=== PATIENT | male | born 1970 | race Caucasian/White ===

== ENCOUNTER 2019-10-03 17:52 | Inpatient (IN) | payer BC, OTHER ==
[~2019-10-03] VITALS: Ht 188 cm; Wt 88.3 kg
[2019-10-03 17:55] VITALS: BP 142/96
[2019-10-03] MEDS ORDERED: METFORMIN HCL500 M3 PO (18:00)
[2019-10-03] MEDS ORDERED: ELIQUIS2.5 MG PO (18:00)
[2019-10-03] MEDS ORDERED: B/P MED (18:01)
[2019-10-03 18:06] LABS: HEMATOCRIT 51.1 % (42.0-52.0); HEMOGLOBIN 17.1 gm/dL (14.0-18.0); MCH 28.3 pg (26.0-34.0); MCHC 33.5 g/dL (28.0-37.0); MCV 84.4 fL (80.0-100.0); MPV 10.6 fl. (7.2-11.1); NUCLEATED RBCS 0 /100WBC; PLATELET COUNT* 380 thou/uL (150-400); RBC 6.06 mil/uL (4.50-6.00); RDW-CV 15.4 % (10.5-14.5); WBC 35.1 thou/uL (4.0-11.0)
[2019-10-03 18:23] LABS: APTT 31.9 Seconds (25.0-31.3); INR 1.3; PROTIME 13.5 Seconds (9.20-11.50)
[2019-10-03 18:24] LABS: CALCIUM 9.2 mg/dL (8.5-10.1); CREATININE 1.8 mg/dL (0.6-1.3); POTASSIUM 3.7 mmol/L (3.5-5.1)
[2019-10-03 18:25] LABS: INFLUENZA A ANTIGEN Negative (Negative); INFLUENZA B ANTIGEN Negative (Negative)
[2019-10-03 18:35] LABS: ALBUMIN 3.2 g/dL (3.4-5.0); MAGNESIUM 1.6 mg/dL (1.8-2.4); TOTAL BILIRUBIN 4.3 mg/dL (<0.1-1.0); TOTAL PROTEIN 7.5 g/dL (6.4-8.2)
[2019-10-03 18:40] LABS: BE 1.6 mmol/L (-2 to +3); PCO2 32.4 mmHg (35.0-45.0); pH 7.488 (7.340-7.450)
[2019-10-03 18:43] LABS: PO2 58.7 mmHg (75.0-100.0)
[2019-10-03 18:47] LABS: ABSOLUTE LYMPHOCYTES 3.9 thou/uL (0.8-5.3); ABSOLUTE MONOCYTES 1.1 thou/uL (0.0-1.2); ABSOLUTE NEUTROPHILS 30.2 thou/uL (1.6-8.1); ATYPICAL LYMPHS 8 %; PLATELET ESTIMATE ADEQUATE
--- NOTE | 2019-10-03 18:51 | NUR ---
CALLED RT FOR HIGH FLOW NASAL CANULA. PT ON 6LNC SPO2 91% PT ESCORT NOTIFIED. RT IN WITH PT NOW TO CHANGE OXYGEN TUBING TO HIGH FLOW AND HUMIDIFIED OXYGEN.
[2019-10-03 22:40] VITALS: BP 116/57
[2019-10-03 23:15] VITALS: BP 121/71
--- NOTE | 2019-10-04 04:19 | NUR ---
RECEIVED REPORT AND ASSUMED CARE AT 2300. PT TRANSPORTED FROM ED TO ROOM 206. VSS. CARDIAC MONITORING IN PLACE. PT DENIES COMPLAINTS OF PAIN. ASSESSMENT COMPLETED CHARTED, ADMISSION COMPLETED BY NURSING. PT UP AD VLADIMIR IN ROOM, ON 2L NC. BED LOCKED IN LOWEST POSITION, CALL LIGHT WITHIN REACH. DISCUSSED PLAN OF CARE WTIH PT, VERBALIZED UNDERSTANDING. MEDICATIONS ADMIN PER ORDERS.
[2019-10-04 04:40] VITALS: BP 104/68
[2019-10-04 08:37] VITALS: BP 132/79
--- NOTE | 2019-10-04 09:26 | NUR ---
ASSUMED CARE OF PT THIS AM AROUND 0715- SOFT MUD MOLDER IN PLACE ORDERED, TRACING SR/BBB/1ST DEGREE- UPON ASSESSMENT PT NOTED TO BE RESTING IN BED- PT A&O X4- CONTINENT OF B/B- UP AD-VLADIMIR IN ROOM, STEADY GAIT NOTED- DIMINISHED LUNG SOUNDS NOTED, DYSPNEA NOTED ON EXERTION- VSS, O2 SAT 94% ON 2L VIA NC- ABD SOFT/OBESE/NON-TENDER, BS X4 QUADS- LAST BM REPORTED 10/03/19- IV NOTED TO RIGHT HAND INTACT, IVF INFUSSING WELL IV ABT, IV NOTED TO LEFT HAND INTACT AND SL; IV NOTED TO LEFT AC INTACT, IV ABT INFUSSING PRESCIBED- GOOD PO INTAKE NOTED THIS AM WITH BREAKFAST, BS MONITORED ORDERED WITH SSI PRESCRIBED-PT DENIES ANY C/O PAIN/DISCOMFORT AT THIS TIME- CALL LIGHT AND PESONAL BELONGINGS WITH IN REACH- PT MAKES NEEDS KNOWN- ALL NEEDS MET AT THIS TIME-WCTM
--- NOTE | 2019-10-04 11:06 | NUR ---
Pt is A&O. Resides at home with . Normally active and independent. No DME. No hx of HH or SNF. Goal is home at ut. Following.
[2019-10-04 11:48] VITALS: BP 128/77
--- NOTE | 2019-10-04 12:50 | EKG ---
[place] [address] ELECTROCARDIOGRAM REPORT Name: TAINA OCONNELL Room: [address] ADM IN [facility].#: [id number] Admission: 10/03/19 Attend Phys: Gurdeep Nye, Discharge: Date of : 70 Report #: [id number] THIS REPORT FOR: //name// [facility] ED Test Date: 2019-10-03 Test Time: 18:29:18 Pat Name: TAINA OCONNELL Department: Room: [facility] Gender: M Regional Commercial Sales Manager: [place] : 1970 Requested By: Godfrey Nava Order Number: [id number] MD: Lexx Mathews Measurements Intervals [place] Rate: 91 P: -8 MT: 171 QRS: 89 QRSD: 159 T: -39 QT: 387 QTc: 477 Interpretive Statements Sinus rhythm Right bundle branch block No previous ECG available for comparison Electronically Signed On 10-04-2019 12:49:24 CELLOPHANE BAG MACHINE OPERATOR by Lexx Mathews [email or web address] <ELECTRONICALLY SIGNED> By: Lexx Mathews MD, [facility] 10/04/19 1249 28 28 Lexx Mathews MD, FACC /EPI
[2019-10-04 12:58] LABS: URINE BLOOD NEGATIVE (Negative); URINE CLARITY CLEAR; URINE COLOR YELLOW; URINE GLUCOSE-RANDOM 1+ (Negative); URINE KETONES TRACE (Negative); URINE LEUKOCYTES-REFLEX NEGATIVE (Negative); URINE NITRITE-REFLEX NEGATIVE (Negative); URINE PROTEIN 2+ (Negative); URINE SPECIFIC GRAVITY 1.025 (1.005-1.030); URINE UROBILINOGEN 0.2 E.U./dl (0.2-1.0)
[2019-10-04 12:59] LABS: ICTOTEST (BILI CONFIRMATORY) Negative (Negative); URINE BILIRUBIN 1+ (Negative)
[2019-10-04 13:05] LABS: CASTS None Seen /LPF (None Seen); CRYSTALS None Seen /LPF (None Seen); MUCUS 0-3 Light strn/LPF (None Seen); SQUAMOUS 0-3 Few /LPF (0-3); URINE RBC 0-2 Rare /HPF (0-2); URINE WBC-REFLEX 0-5 Rare /HPF (0-5)
[2019-10-04 15:54] LABS: HEMATOCRIT 45.5 % (42.0-52.0); HEMOGLOBIN 15.3 gm/dL (14.0-18.0); MCH 28.3 pg (26.0-34.0); MCHC 33.6 g/dL (28.0-37.0); MCV 84.4 fL (80.0-100.0); NUCLEATED RBCS 0 /100WBC; PLATELET COUNT* 356 thou/uL (150-400); RBC 5.39 mil/uL (4.50-6.00); RDW-CV 15.3 % (10.5-14.5); WBC 38.8 thou/uL (4.0-11.0)
[2019-10-04 16:07] LABS: ALBUMIN 2.7 g/dL (3.4-5.0); CALCIUM 8.8 mg/dL (8.5-10.1); CREATININE 1.7 mg/dL (0.6-1.3); POTASSIUM 3.2 mmol/L (3.5-5.1); TOTAL BILIRUBIN 1.3 mg/dL (<0.1-1.0); TOTAL PROTEIN 7.5 g/dL (6.4-8.2)
[2019-10-04 17:10] LABS: ABSOLUTE LYMPHOCYTES 0.4 thou/uL (0.8-5.3); ABSOLUTE MONOCYTES 1.9 thou/uL (0.0-1.2); ABSOLUTE NEUTROPHILS 36.5 thou/uL (1.6-8.1)
[2019-10-04 17:11] LABS: LARGE PLATELETS FEW; PLATELET ESTIMATE ADEQUATE
[2019-10-04 17:25] VITALS: BP 149/89
[2019-10-04 20:08] VITALS: BP 139/79
[2019-10-04 23:59] VITALS: BP 149/92
[2019-10-05 04:14] VITALS: BP 162/91
--- NOTE | 2019-10-05 05:08 | NUR ---
PT IS ABLE TO COMMUNICATE HIS NEEDS TO STAFF EFFECTIVELY. HE HAS DENIED THE NEED FOR PAIN MEDICATION UP TO THIS TIME. PT HAS BEEN WEARING HIS HOME CPAP WHILE SLEEPING TONIGHT, UP TO THIS TIME. POSSIBLE DISCHARGE IN A FEW DAYS.
[2019-10-05 06:36] LABS: ABSOLUTE BASOPHILS 0.1 thou/uL (0.0-0.2); ABSOLUTE LYMPHOCYTES 0.6 thou/uL (0.8-5.3); ABSOLUTE MONOCYTES 2.9 thou/uL (0.0-1.2); ABSOLUTE NEUTROPHILS 29.3 thou/uL (1.6-8.1); BASOPHILS 0.2 %; HEMATOCRIT 41.4 % (42.0-52.0); HEMOGLOBIN 13.6 gm/dL (14.0-18.0); LYMPHOCYTES 1.9 %; MCH 27.9 pg (26.0-34.0); MCHC 32.9 g/dL (28.0-37.0); MCV 84.7 fL (80.0-100.0); MPV 10.3 fl. (7.2-11.1); NUCLEATED RBCS 0 /100WBC; PLATELET COUNT* 323 thou/uL (150-400); POLYS 88.9 %; RBC 4.88 mil/uL (4.50-6.00); RDW-CV 15.5 % (10.5-14.5); WBC 32.9 thou/uL (4.0-11.0)
[2019-10-05 06:48] LABS: CALCIUM 8.3 mg/dL (8.5-10.1); CREATININE 1.3 mg/dL (0.6-1.3); POTASSIUM 3.3 mmol/L (3.5-5.1)
[2019-10-05 07:46] VITALS: BP 138/94
--- NOTE | 2019-10-05 08:49 | NUR ---
ASSUMED CARE OF PT THIS AM AROUND 714- COTTON PICKER OPERATOR IN PLACE ORDERED, TRACING SR- UPON ASSESSMENT PT NOTED TO BE RESTING IN BED, WATCHING TV- PT A&O X4- CONTINENT OF BOWEL AND BLADDER- UP AD-VLADIMIR IN ROOM, STEADY GAIT NOTED- LCTA/DIMINISHED IN BASES- DYSPNEA NOTED- VSS, O2 SAT 95% ON 2L VIA NC-WET PRODUCTIVE COUGH NOTED- ABD SOFT/OBESE/NON-TENDER, BS X4 QUADS-LAST BM REPORTED OVERNIGHT- IV NOTED TO LEFT HAND AND LEFT AC INTACT, IV ABT GIVEN PRESCIBED- TRACE EDEMA NOTED TO BLE- K+ CURRENTLY BEING REPLACED PER PROTOCOL THIS SHIFT- ISOLATION IN PLACE AND MAINTAINED INDICATED R/T MRSA PER NASAL- GOOD PO INTAKE NOTED, BS MONITORED ORDERED- PT DENIES ANY C/O PAIN/DISCOMFORT AT THIS TIME- CALL LIGHT AND PERSONAL BELONGINGS WITH IN REACH- PT MAKES NEEDS KNOWN- ALL NEEDS MET AT THIS TIME-WCTM
--- NOTE | 2019-10-05 12:22 | CON ---
[address] [address] CONSULTATION Name: TAINA OCONNELL Room: [address] IN .R.#: [id number] Admission: 10/03/19 Attend Phys: Gurdeep Nye, Discharge: Date of : 70 Report #: [id number] THIS REPORT FOR: //name// CC: Lexx Nye DATE OF SERVICE: 10/04/2019 ATTENDING PHYSICIAN: Gurdeep Nye MD REASON FOR EVALUATION: Sepsis, pneumonia. HISTORY OF PRESENT ILLNESS: Chart reviewed and the patient examined. This is a 49-year-old gentleman with significant history including hemolytic anemia history, as per the evaluation and treatment had a splenectomy several years ago, he is diabetic as well, who was admitted through the Emergency Room with complaints of progressive cough, did have some subsequent dyspnea, noted onset on 09/29 and found to have hypoxemia with saturations in the 80s. He did have some associated fevers. He did feel chills, although they were not shaking and was complicated by some diaphoresis. On evaluation, he was found to have multifocal changes on x-ray suggestive of pneumonia. He did have a markedly elevated white count in the setting of a splenectomy 35,000. Interestingly, he had some atypical lymphocytes as well. Influenza antigen was negative. Lactic acid was elevated at 2.6. Troponin level was elevated to 0.08. Blood cultures are sterile thus far. CT of the chest PE protocol showed multifocal pneumonia with prominent consolidation involving the inferior lateral aspect of the left upper lobe, lingula and left lower lobe in addition to patchy perihilar infiltrate in the right side with some adenopathy. He actually feels quite a bit better. He has been empirically placed on combination therapy with piperacillin, tazobactam as well as levofloxacin. He denies significant gastrointestinal-related complaints. He is not encephalopathic. ALLERGIES: HYDROCODONE. CURRENT MEDICATIONS: Include pantoprazole, apixaban, hydralazine, ondansetron, levofloxacin, Zosyn. PAST MEDICAL HISTORY: History of autoimmune hemolytic anemia, previous splenectomy, hypertension, previous PE, DVT, diabetes. SOCIAL HISTORY: Nonsmoker, no ethanol, no illicit drug use. FAMILY HISTORY: Noncontributory. REVIEW OF SYSTEMS: As above, [place] [address] CONSULTATION Name: TAINA OCONNELL Room: [address]#: [id number] Admission: 10/03/19 Attend Phys: Gurdeep Nye, Discharge: Date of : 70 Report #: [id number] PHYSICAL EXAMINATION: GENERAL: He is alert and cooperative. He is sitting in the chair. He has got nasal cannula oxygen in place supplementation, appears well nourished. VITAL SIGNS: T-max of 101.0 overnight, more recently 97.2; pulse 74; respirations 20; blood pressure 132/79. SKIN: Warm, dry, no rashes. HEENT: Normocephalic. Extraocular muscles intact. NECK: Supple. LUNGS: Coarse scattered coarse breath sounds. HEART: Regular. I do not appreciate a murmur. ABDOMEN: Obese, soft, nontender. EXTREMITIES: No cyanosis. GENITOURINARY: Deferred. RECTAL: Deferred. LABORATORY DATA: Blood cultures sterile thus far. CT as described above. Lactic acid, most recently 2.0. CBC: White count of 35.1, H and H 17.1 and 51.1, platelets of 380. Differential remarkable for atypical lymphocytes without number, normal lymphocytes 2.5 to 1, but the absolute atypical lymphocyte count of 2700. ABGs: pH 7.488, pCO2 of 32.4, pO2 of 58.7 and was on 4 liters. ASSESSMENT AND PLAN: Pneumonitis multifocal and the patient is immunosuppressed post-splenectomy, certainly at risk for encapsulated organisms. We will check additional diagnostic testing and have Radiology to do a peripheral smear to exclude an occult process given the question of adenopathy in the chest. If he does not clear, may need to consider procedure to obtain tissue and culture. Thank you and we will follow. <ELECTRONICALLY SIGNED> By: Caio Ruiz MD 10/05/19 1222 1140 [id number] Ruiz MD /nt
[2019-10-05 16:00] VITALS: BP 152/94
--- NOTE | 2019-10-05 18:05 | CON ---
[address] [address] CONSULTATION Name: TAINA OCONNELL Room: [address] IN .R#: [id number] Admission: 10/03/19 Attend Phys: Gurdeep Nye, Discharge: Date of : 70 Report #: [id number] THIS REPORT FOR: //name// CC: Lexx Nye DATE OF SERVICE: 10/05/2019 I was asked to see this 49-year-old gentleman for acute respiratory failure, pneumonia. HISTORY OF PRESENT ILLNESS: He is a lifelong nonsmoker. He has history of hemolytic anemia, status post splenectomy in 1990. He did receive Rituxan in 2017 when he had pneumonia. He has obstructive sleep apnea-hypopnea syndrome, is on CPAP at night. He is not on oxygen at home. He has not felt well for the past few days. He has had increased cough with yellow sputum production, shortness of breath, fever and chills. He had 1 episode of diarrhea. He did not have nausea, vomiting. He presented to the Emergency Room, his oxygen saturation was 80%. He is on oxygen now. He feels better. He is on Eliquis for history of DVT, pulmonary embolism. PAST MEDICAL HISTORY: Splenectomy hemolytic anemia; history of DVT and PE, on Eliquis; hypertension; diabetes mellitus; obstructive sleep apnea-hypopnea syndrome. ALLERGIES: ACETAMINOPHEN AND HYDROCODONE. MEDICATIONS: Currently, he is on Eliquis, hydralazine p.r.n., DuoNeb q.4 hours, Levaquin, Zosyn, potassium. SOCIAL HISTORY: He is a lifelong nonsmoker. REVIEW OF SYSTEMS: As mentioned as above, other systems otherwise negative. PHYSICAL EXAMINATION: GENERAL: This is an obese gentleman. VITAL SIGNS: His O2 saturation is 98% on 3 liters of oxygen, temperature 36.4, heart rate 64, respiratory rate 20, blood pressure 162/91. HEENT: Normocephalic, atraumatic. Pupils equal, round, reactive to light. Throat is clear. There is shallow oropharynx. Nose is clear. NECK: There is no JVD, lymphadenopathy or thyromegaly. CARDIOVASCULAR: Regular rate and rhythm. PMI is nondisplaced. CHEST: [place] [address] CONSULTATION Name: TAINA OCONNELL Room: [address]#: [id number] Admission: 10/03/19 Attend Phys: Gurdeep Nye, Discharge: Date of : 70 Report #: [id number] LUNGS: There are bibasilar crackles. Percussion is within normal limit. ABDOMEN: Soft and obese. Bowel sounds are good. There is no mass. EXTREMITIES: There is no edema. LYMPHATICS: There is no lymphadenopathy. NEUROLOGIC: Alert and oriented. SKIN: Warm. LABORATORY DATA: I reviewed the following lab data: CT of the chest did show multifocal infiltrate/consolidation inferior-lateral aspect of left upper lobe, lingula and left lower lobe, patchy perihilar infiltrate on the right, multiple hilar and mediastinal lymphadenopathy 1.2 cm pleural-based irregular nodule in the right upper lobe, mid-size hiatal hernia. WBC 13.8, hemoglobin 15.3, platelets 356. Sodium 142, potassium 3.2, chloride 104, CO2 of 26, glucose 187, BUN 32, creatinine 1.7. Lactic acid 2.6, repeat 2. Troponin less than 0.06. BNP 2711. IMPRESSION: 1. Acute respiratory failure secondary to pneumonia, acute bronchospasm. 2. Abnormal CT of the chest. 3. Pneumonia. 4. Obstructive sleep apnea-hypopnea syndrome. 5. Diabetes mellitus. 6. Hypertension. 7. History of hemolytic anemia. 8. History of deep venous thrombosis and pulmonary embolism. 9. History of splenectomy. PLAN AND RECOMMENDATIONS: 1. Titrate FiO2 to keep O2 saturation 92%. 2. Continue bronchodilator. 3. Continue antibiotic. 4. He is clinically improving. He does not need bronchoscopy. He would require a repeat CT of the chest in 4-6 weeks. 5. Continue antibiotic. Agree with ID consultation. 6. Use CPAP during sleep. I have discussed the importance of treatment of obstructive sleep apnea-hypopnea syndrome, if untreated increase cardiovascular and PAPER BAG MAKER morbidity and mortality. 7. Continue Eliquis. Thank you very much for allowing me to participate in care of this very nice gentleman. <ELECTRONICALLY SIGNED> By: Rikki Mireles MD 10/05/19 1805 0522 [id number] Mireles MD /nt
[2019-10-05 20:19] VITALS: BP 148/77
[2019-10-06] VITALS: BP 134/67
--- NOTE | 2019-10-06 05:12 | NUR ---
PT IS ABLE TO COMMUNICATE HIS NEEDS TO STAFF EFFECTIVELY. HE HAS DENIED THE NEED FOR PAIN MEDICATION UP TO THIS TIME. HE HAS BEEN WEARING HIS CPAP WHILE SLEEPING OVERNIGHT, UP TO THIS TIME. HE IS MED/SURG, NON-TELEMETRY MONITORING, STATUS NOW. CONTACT ISOLATION FOR MRSA MAINTAINED.
[2019-10-06 05:28] LABS: ABSOLUTE LYMPHOCYTES 1.1 thou/uL (0.8-5.3); ABSOLUTE MONOCYTES 2.8 thou/uL (0.0-1.2); ABSOLUTE NEUTROPHILS 21.3 thou/uL (1.6-8.1); BASOPHILS 0.2 %; EOSINOPHILS 0.2 %; HEMATOCRIT 39.7 % (42.0-52.0); HEMOGLOBIN 13.2 gm/dL (14.0-18.0); LYMPHOCYTES 4.4 %; MCH 28.2 pg (26.0-34.0); MCHC 33.3 g/dL (28.0-37.0); MCV 84.5 fL (80.0-100.0); MONOCYTES 10.9 %; MPV 10.8 fl. (7.2-11.1); NUCLEATED RBCS 0 /100WBC; PLATELET COUNT* 317 thou/uL (150-400); POLYS 84.3 %; RBC 4.69 mil/uL (4.50-6.00); RDW-CV 15.2 % (10.5-14.5); WBC 25.3 thou/uL (4.0-11.0)
[2019-10-06 05:50] LABS: ALBUMIN 2.2 g/dL (3.4-5.0); CALCIUM 8.1 mg/dL (8.5-10.1); CREATININE 1.3 mg/dL (0.6-1.3); POTASSIUM 3.6 mmol/L (3.5-5.1); TOTAL BILIRUBIN 1.5 mg/dL (<0.1-1.0); TOTAL PROTEIN 5.6 g/dL (6.4-8.2)
[2019-10-06 08:00] VITALS: BP 153/81
[2019-10-06 11:01] LABS: DIRECT BILIRUBIN 0.6 mg/dL (<0.1-0.3)
[2019-10-06 16:00] VITALS: BP 167/95
[2019-10-06 20:36] VITALS: BP 158/89
[2019-10-07] VITALS: BP 180/91
[2019-10-07 00:04] VITALS: BP 130/60
--- NOTE | 2019-10-07 05:18 | NUR ---
PT IS ABLE TO COMMUNICATE HIS NEEDS TO STAFF EFFECTIVELY. HE HAS DENIED THE NEED FOR PAIN MEDICATION UP TO THIS TIME. HE IS MED/SURG, NON-TELEMETRY, STATUS AT THIS TIME. PT STILL REQUIRING O2 WHILE WEARING HIS CPAP AT [facility] AND OCCASIONALLY WHILE UP DURING THE DAY.
[2019-10-07 05:30] LABS: HEMATOCRIT 38.8 % (42.0-52.0); HEMOGLOBIN 13.1 gm/dL (14.0-18.0); MCH 28.2 pg (26.0-34.0); MCHC 33.6 g/dL (28.0-37.0); MCV 83.8 fL (80.0-100.0); MPV 9.9 fl. (7.2-11.1); NUCLEATED RBCS 0 /100WBC; PLATELET COUNT* 325 thou/uL (150-400); RBC 4.63 mil/uL (4.50-6.00); RDW-CV 14.9 % (10.5-14.5); WBC 25.3 thou/uL (4.0-11.0)
[2019-10-07 05:48] LABS: ALBUMIN 2.3 g/dL (3.4-5.0); CALCIUM 8.3 mg/dL (8.5-10.1); POTASSIUM 3.2 mmol/L (3.5-5.1); TOTAL BILIRUBIN 1.9 mg/dL (<0.1-1.0); TOTAL PROTEIN 5.7 g/dL (6.4-8.2)
[2019-10-07 05:51] LABS: PREALBUMIN 15.5 mg/dL (18.0-35.7)
[2019-10-07 07:33] LABS: ABSOLUTE EOSINOPHILS 0.5 thou/uL (0.0-0.7); ABSOLUTE LYMPHOCYTES 1.3 thou/uL (0.8-5.3); ABSOLUTE NEUTROPHILS 22.5 thou/uL (1.6-8.1); ANISOCYTOSIS 1+; ATYPICAL LYMPHS 1 %; METAMYELOCYTES 5 %; PLATELET ESTIMATE ADEQUATE
[2019-10-07 08:00] VITALS: BP 173/98
[2019-10-07 11:00] VITALS: BP 151/94
--- NOTE | 2019-10-07 15:32 | NUR ---
ASSUMED PT CARE AT 0730. ASSESSMENT COMPLETED CHARTED. ABLE TO MAKE NEEDS KNOWN. UP AD VLADIMIR. 2L O2 ON, CPAP ON AT NIGHT. IV ABT RUNNING PER EMAR. NO C/O PAIN OR DISCOMFORT. PT TRANSFERRED TO AT AROUND 1515. TOOK ALL BELONGINGS WITH HIM. POTASSIUM AND MAG REPLACED. WILL CONTINUE TO MONITOR.
[2019-10-07 16:00] VITALS: BP 139/78
--- NOTE | 2019-10-07 19:22 | NUR ---
ASSUMED CARE OF PATIENT THIS AFTERNOON. PATIENT ARRIVED TO UNIT AND SETTLED TO ROOM. PATIENT DENIES ANY PAIN OR TROUBLE BREATHING. OXYGEN ON AT 2L/NC. PATIENT IS UP AD VLADIMIR IN ROOM. PATIENT HAD COMPLAINTS OF SORENESS TO OLD INFILTRATED IV SITE, AND WARM PACK APPLIED. PATIENT HAS GOOD APPETITE. PATIENT DENIES ANY NEEDS AT THIS TIME. CALL LIGHT WITHIN REACH.
[2019-10-07 20:00] VITALS: BP 168/98
--- NOTE | 2019-10-08 05:34 | NUR ---
ASSUMED PATIENT CARE AT 1900. PATIENT ALERT AND ORIENTED TIMES FOUR, VISITORS AT BEDSIDE. NO COMPLAINTS OF PAIN OR DISCOMFORT NOTED. HUMIDITY ADDED TO PATIENTS OXYGEN FOR COMFORT. RN ASSESSMNET AND HOURLY ROUNDING COMPLETED CHARTED.
[2019-10-08 07:50] VITALS: BP 150/87
[2019-10-08 11:44] LABS: ABSOLUTE EOSINOPHILS 0.6 thou/uL (0.0-0.7); ABSOLUTE MONOCYTES 4.7 thou/uL (0.0-1.2); ABSOLUTE NEUTROPHILS 19.8 thou/uL (1.6-8.1); EOSINOPHILS 2.4 %; HEMATOCRIT 37.7 % (42.0-52.0); HEMOGLOBIN 12.4 gm/dL (14.0-18.0); LYMPHOCYTES 3.7 %; MCH 28.3 pg (26.0-34.0); MCV 85.7 fL (80.0-100.0); MPV 10.9 fl. (7.2-11.1); NUCLEATED RBCS 0 /100WBC; PLATELET COUNT* 349 thou/uL (150-400); POLYS 75.9 %; RDW-CV 15.4 % (10.5-14.5); WBC 26.1 thou/uL (4.0-11.0)
[2019-10-08] MEDS ORDERED: GLUCOPHAGE1000 MG PO (14:49)
[2019-10-08] MEDS ORDERED: NORVASC 2.5 MG2.5 M1 PO (14:50)
[2019-10-08] MEDS ORDERED: METOPROLOL SUC200 MG PO (14:50)
[2019-10-08] MEDS ORDERED: LISINOPRIL2.5 MG PO (14:50)
[2019-10-08] MEDS ORDERED: FENOFIBRATE200 MG PO (14:51)
[2019-10-08 15:57] VITALS: BP 142/84
--- NOTE | 2019-10-08 17:45 | NUR ---
PATIENT UP AD VLADIMIR. 02 STANDBY, 02 SAT 90-91% RA. HOME MEDICATION LIST UPDATED ORDERED. IV SL, SCHED ABX INFUSED ORDERED. PATIENT USING IS ORDERED. REMAINS ON CONTACT PRECAUTIONS. NO COMPLAINTS OF PAIN.
[2019-10-08 20:00] VITALS: BP 168/98
[2019-10-09 04:52] LABS: CALCIUM 8.2 mg/dL (8.5-10.1); CREATININE 1.1 mg/dL (0.6-1.3)
[2019-10-09 05:31] LABS: ABSOLUTE BASOPHILS 0.1 thou/uL (0.0-0.2); ABSOLUTE EOSINOPHILS 0.7 thou/uL (0.0-0.7); ABSOLUTE MONOCYTES 2.2 thou/uL (0.0-1.2); ABSOLUTE NEUTROPHILS 16.6 thou/uL (1.6-8.1); BASOPHILS 0.4 %; EOSINOPHILS 3.5 %; HEMOGLOBIN 13.4 gm/dL (14.0-18.0); LYMPHOCYTES 4.9 %; MCH 28.2 pg (26.0-34.0); MCHC 33.4 g/dL (28.0-37.0); MCV 84.6 fL (80.0-100.0); MONOCYTES 10.8 %; MPV 9.9 fl. (7.2-11.1); NUCLEATED RBCS 0 /100WBC; POLYS 80.4 %; RBC 4.73 mil/uL (4.50-6.00); RDW-CV 15.2 % (10.5-14.5); WBC 20.6 thou/uL (4.0-11.0)
--- NOTE | 2019-10-09 06:18 | NUR ---
ASSUMED PATIENT CARE AT 1900. ALERT AND ORIENTED TIMES FOUR. COMPLIANT WITH CPAP OVERNIGHT. NO COMPLAINTS OF PAIN OR DISCOMFORT NOTED. NET SOFTWARE DEVELOPER AND HOURLY ROUNDING COMPLETED CHARTED
[2019-10-09 07:32] LABS: PLATELET COUNT* 435 thou/uL (150-400); PLATELET ESTIMATE ADEQUATE
[2019-10-09 07:50] VITALS: BP 122/98
--- NOTE | 2019-10-09 16:41 | NUR ---
PATIENT UP AD VLADIMIR AROUND ROOM. 02 2L NC PRN, 02 SAT 93% ON 2L THIS AM. IV SL, SCHED ABX INFUSED. PATIENT TO TRANSITION TO PO ABX IN AM. NO INSULIN REQUIRED THIS SHIFT. PATIENT HOPING TO GO HOME TOMORROW.
[2019-10-09 23:32] VITALS: BP 142/96
--- NOTE | 2019-10-10 05:54 | NUR ---
PT UP LATE WATCHING TV WITH FAMILY AND FRIENDS. DENIES PAIN OR PROBLEMS. ROOM AIR SAT 92% WHILE AWAKE AND UP IN CHAIR. CPAP 1L O2 TO KEEP SATS IN 90'S OVERNIGHT. REST AND EX SAT ORDERED TODAY. AM LABS. LAC SL. HS ACCUCHECK,NO INSULIN NEEDED. REMAINS ON CONTACT ISOLATION FOR MRSA NARES. PULMONARY CONSULTING. ABLE TO USE CALL LITE AND MAKE NEEDS KNOWN.HOPEFUL FOR DISCHARGE HOME TODAY.
[2019-10-10 07:50] VITALS: BP 154/87
[2019-10-10 09:57] VITALS: BP 154/87
[2019-10-10 11:02] LABS: HEMATOCRIT 40.9 % (42.0-52.0); HEMOGLOBIN 13.6 gm/dL (14.0-18.0); MCH 28.3 pg (26.0-34.0); MCHC 33.1 g/dL (28.0-37.0); MCV 85.4 fL (80.0-100.0); MPV 10.4 fl. (7.2-11.1); NUCLEATED RBCS 0 /100WBC; PLATELET COUNT* 508 thou/uL (150-400); RBC 4.79 mil/uL (4.50-6.00); RDW-CV 15.2 % (10.5-14.5); WBC 15.6 thou/uL (4.0-11.0)
[2019-10-10 11:12] LABS: CALCIUM 8.6 mg/dL (8.5-10.1); POTASSIUM 3.4 mmol/L (3.5-5.1)
[2019-10-10 11:52] LABS: ABSOLUTE BASOPHILS 0.2 thou/uL (0.0-0.2); ABSOLUTE EOSINOPHILS 0.9 thou/uL (0.0-0.7); ABSOLUTE LYMPHOCYTES 1.2 thou/uL (0.8-5.3); ABSOLUTE MONOCYTES 1.7 thou/uL (0.0-1.2); ABSOLUTE NEUTROPHILS 11.5 thou/uL (1.6-8.1); ATYPICAL LYMPHS 3 %; METAMYELOCYTES 9 %; PLATELET ESTIMATE ADEQUATE
--- NOTE | 2019-10-10 12:43 | NUR ---
Pt to dc home with and with need of home oxygen when ambulating. Pt has CPAP already through [facility]; SW faxed referral and oxygen order to [facility]. O2 tank to be delivered to hospital prior to pt dc. [facility] ph [phone]
[2019-10-10] MEDS ORDERED: LEVAQUIN 750 M750 MG PO (13:10)
[2019-10-10 15:41] VITALS: BP 154/87
--- NOTE | 2019-10-10 17:13 | NUR ---
PATIENT DISCHARGED TO HOME AT THIS TIME. REQUIRED , TANK DELEIVERED. 3L NC WITH ACTIVITY. IV DC'D THIS AFTERNOON. UP AD VLADIMIR WITHOUT DIFFICULTY. POTASSIUM REPLACED PRIOR TO DC. PATIENT TAKEN OUT VIA WHEELCHAIR WITH ALL BELONGINGS.
== END 2019-10-10 17:16 | disposition home or self-care (01) | DRG 871 ==
LOC: M.ERS 17:52 → M.TBA-ER 18:44 → M.2W 18:44 → M.3W 10-07 15:20
PROVIDERS: Family Medicine; Internal Medicine; Internal Medicine Hematology & Oncology; Internal Medicine Infectious Disease; Nurse Practitioner Family; ADMIT Family Medicine
PROC: 5A09357 Assistance with Respiratory Ventilation, Less than 24 Consecutive Hours, Continuous Positive Airway Pressure (ICD-10-PCS; principal; 2019-10-04)
PROC: 5A09357 Assistance with Respiratory Ventilation, Less than 24 Consecutive Hours, Continuous Positive Airway Pressure (ICD-10-PCS; 2019-10-05)
PROC: 5A09357 Assistance with Respiratory Ventilation, Less than 24 Consecutive Hours, Continuous Positive Airway Pressure (ICD-10-PCS; 2019-10-06)
PROC: 5A09357 Assistance with Respiratory Ventilation, Less than 24 Consecutive Hours, Continuous Positive Airway Pressure (ICD-10-PCS; 2019-10-08)
PROC: 5A09357 Assistance with Respiratory Ventilation, Less than 24 Consecutive Hours, Continuous Positive Airway Pressure (ICD-10-PCS; 2019-10-10)
DX: A41.9 Sepsis, unspecified organism (principal); J18.9 Pneumonia, unspecified organism; J96.01 Acute respiratory failure with hypoxia; D59.1 Other autoimmune hemolytic anemias; E66.2 Morbid (severe) obesity with alveolar hypoventilation; N17.9 Acute kidney failure, unspecified; R65.20 Severe sepsis without septic shock; R59.0 Localized enlarged lymph nodes; E11.9 Type 2 diabetes mellitus without complications; I10 Essential (primary) hypertension; Z86.711 Personal history of pulmonary embolism; Z68.25 Body mass index [BMI] 25.0-25.9, adult; Z86.718 Personal history of other venous thrombosis and embolism; Z79.01 Long term (current) use of anticoagulants; Z90.49 Acquired absence of other specified parts of digestive tract; Z90.81 Acquired absence of spleen; Z79.84 Long term (current) use of oral hypoglycemic drugs; Z88.6 Allergy status to analgesic agent; Z88.5 Allergy status to narcotic agent; J98.01 Acute bronchospasm; D72.820 Lymphocytosis (symptomatic)